=== PATIENT | female | born 2000 | race Caucasian/White ===

== ENCOUNTER 2024-08-30 04:52 | Emergency (ER) | payer OTHER, SELFPAY ==
--- NOTE | ~2024-08-30 | XR_ITS ---
EXAMINATION: XR ANKLE, RIGHT CLINICAL INFORMATION: fall COMPARISON: None available. TECHNIQUE: AP, lateral, and mortise views of the right ankle. FINDINGS: Soft tissue prominence is present adjacent to the lateral malleolus. The talar dome is intact. The base of the fifth metatarsal is normal in appearance. Subtalar joints are normal in appearance. Minimal chronic enthesopathic changes are present at the Achilles insertion upon the calcaneus. XR/XR ankle RT 2V IMPRESSION: *Lateral malleolar soft tissue inflammatory changes. No acute fractures or acute subluxations. Electronically signed by: Jean Monroy MD 08/30/2024 06:42 AM [facility]
[2024-08-30 04:56] VITALS: BP 137/79; PULSE 91; RESP 16; TEMP 36.7; O2SAT 98; BMI 51.4
--- NOTE | 2024-08-30 06:28 | ED_ITS ---
HPI - Extremity Injury (Lower) General Chief Complaint: Extremity Injury, Lower Stated Complaint: fall Time Seen by Provider: 08/30/24 06:27 Source: patient Mode of arrival: wheelchair Limitations: no limitations History of Present Illness ED Provider: René Westbrook PA-C HPI Narrative: 23 yo female presents to the ER for evaluation of right ankle injury after she missed a step and twisted her ankle this morning. She states she twisted the ankle and heard a pop when she landed on it with all of her weight. She has been unable to bear weight since. She has swelling to the outside of the ankle. Severe pain with movement of the foot. no knee, ankle or hip pain. no numbness, tingling or deformity of the ankle. she states she has sprained this ankle 3x in the past. MD complaint: ankle injury Onset (ago): hour(s) (1) Type of Injury: inversion Place: home Severity: severe Relieving factors: immobilization Exacerbating factors: weight bearing, movement and palpation Context: walking Associated symptoms: snap/pop sensation and unable to bear weight Other symptoms: none Treatments prior to arrival: cold therapy Related Data Allergies Allergy/AdvReac Type Severity Reaction Status Date / Time No Known Allergies Allergy Verified 08/30/24 05:01 Review of Systems Review of Systems: Yes all other systems are reviewed and are negative PMFSH Social History Social History Smoked in Last 30 Days: No Use of substances other than those prescribed or required for medical reasons: No Advance Directives: No Advance Directives Information Provided: No Do you have a plan to hurt others: No Plan Physical Exam Vital Signs: Vital Signs: Last Vital Signs Temp 98.0 F 08/30/24 04:56 Pulse 91 08/30/24 04:56 Resp 16 08/30/24 04:56 BP 137/79 08/30/24 04:56 Pulse Ox 98 08/30/24 04:56 O2 Del Method Room Air 08/30/24 04:56 BMI result Body Mass Index 51.4 Appearance: Alert. Oriented X3. Appears uncomfortable. HEENT: normal inspection CVS: Normal heart rate and rhythm. Pulses normal. Respiratory: No respiratory distress. Skin: Skin warm and dry. Normal skin color. Normal skin turgor. No rashes. Extremities: right lateral ankle with moderate swelling and tenderness of the lateral malleolus. no ecchymosis. no deformity. foot is warm and well perfused, 2+ DP pulses. limited ROM of the ankle and foot due to pain Neuro: Oriented X 3. No motor deficit. No sensory deficit. Medications Administered Discontinued Medications Generic Name Dose Route Start Last Admin Trade Name Linnette PRN Reason Stop Dose Admin Ibuprofen 600 mg 08/30/24 06:59 08/30/24 07:37 Ibuprofen 600 Mg Tablet PO 08/30/24 07:00 600 mg ONCE ONE Administration Medical Decision Making Medical Decision Making MDM Narrative: 23 y/o female presents to the ER for evaluation of right ankle pain and swelling s/p inversion injury this morning. unable to bear weight. moderate swelling with significant tenderness and limited ROM on exam. XR ankle without acute fx. treating for acute sprain w/ air cast, CYNTHIA, RICE, crutches, NSAIDs. patient counseled on dx and tx, recommended outpatient follow up given recurrent injury stable for d/c home with supportive care Differential Diagnosis Differential Diagnoses: The differential diagnosis associated with the presentation includes ankle sprain, ankle strain, ankle fracture, foot fracture Independent Interpretation I performed an independent interpretation of an: Plain X-Ray Interpretation: no acute fracture of the ankle, normal mortise Radiology Impression Discussion of test interpretation with radiology: I have reviewed the radiologist's reading. Prescription Management I considered prescription management with: Pain Medication Chronic Conditions Patient?s care impacted by: Other (obesity, history of recurrent right ankle sprain) Critical Care Time Critical Care Time Critical Care Time: No Discharge Plan Discharge Clinical Impression: Ankle sprain and strain Patient Disposition: Home, Self-Care Instructions: Ankle Sprain (DC) Additional Instructions: Your x-ray today did now show any broken bones Rest your ankle and elevate your foot when possible. Recommend CYNTHIA wrap for support and compression. Use ice several times per day for the next 48 hours. You may bear weight as tolerated. If pain is too severe, use crutches until better. Take Motrin and/or Tylenol as needed for pain. Follow up with your doctor as needed. Referrals: [facility] [Provider Group] (ankle sprain) Stand Alone Forms: Work/School Release Print Language: Uzbek
--- NOTE | 2024-08-30 07:00 | PC.NURSE ---
report given Lucero SHERMAN
[2024-08-30] MEDS: Ibuprofen 600 MG TABLET PO (07:37)
--- NOTE | 2024-08-30 08:13 | PC.NURSE ---
Pt refused aircast. Provider notified, CYNTHIA wrap applied to right ankle.
[2024-08-30 08:14] VITALS: BP 130/72; PULSE 82; RESP 16; TEMP 36.7; O2SAT 98
[2024-08-30 08:15] VITALS: BP 130/72; PULSE 82; RESP 16; TEMP 36.7; O2SAT 98
== END 2024-08-30 08:16 | disposition home or self-care (01) ==
PROVIDERS: Emergency Provider Emergency Medicine
DX: S93.401A Sprain of unspecified ligament of right ankle, initial encounter (principal); S96.911A Strain of unspecified muscle and tendon at ankle and foot level, right foot, initial encounter; W10.8XXA Fall (on) (from) other stairs and steps, initial encounter; Y93.89 Activity, other specified; Y92.018 Other place in single-family (private) house as the place of occurrence of the external cause; Y99.9 Unspecified external cause status
CPT/HCPCS: 73600; 99283; 99284